=== PATIENT | male | born 1965 | race African-American/Black ===

== ENCOUNTER 2016-08-20 14:52 | Emergency (ER) | payer SELFPAY ==
[~2016-08-20] VITALS: Ht 172.7 cm; Wt 81.6 kg
[2016-08-20] MEDS ORDERED: Thiamine 100mg tab ORAL ONE (15:00)
--- NOTE | 2016-08-20 15:05 | Emergency Room Report ---
History of Present Illness General Chief Complaint: Generalized Weakness Source: Patient (Nellie Grider) Present Illness HPI 51-year-old male presents emergency department brought by ambulance for altered mental status found an apartment 2 days patient is unable to answer questions currently Ananda Beasley. (Nellie Grider) Allergies: Coded Allergies: UNABLE TO ASSESS (Unverified , 08/20/16) Patient History Past Medical History: see triage record Past Surgical History: none Pertinent Family History: none Immunizations: UTD Reviewed Nursing Documentation: PMH: Agreed, PSxH: Agreed (Nellie Grider) Nursing Documentation-PMH Past Medical History: No Stated History (Nellie Grider) Review of Systems All Other Systems: limited - AMS (Nellie Grider) Physical Exam Vital Signs Date Time Temp Pulse Resp B/P Pulse Ox O2 Delivery O2 Flow Rate FiO2 08/20/16 14:47 95 16 116/65 98 Room Air Sp02 EP Interpretation: normal General Appearance: lethargic, thin Head: normocephalic, atraumatic Eyes: bilateral eye PERRL ENT: no angioedema, TMs + canals normal, moist mucus membranes Neck: no bony tend Respiratory: lungs clear, normal breath sounds, no rhonchi, no wheezing Cardiovascular #1: normal peripheral pulses, regular rate, rhythm, no edema, normal capillary refill Cardiovascular #2: 2+ radial (R), 2+ radial (L), 2+ dorsalis pedis (R), 2+ dorsalis pedis (L) Gastrointestinal: non tender, soft, non-distended Rectal: heme negative stool Genitourinary: deferred Neurologic: motor strength/tone normal, DTRs symmetric, sensory intact, no Babinski, other - no facial droop, asymetrical eyebrow raise, neuro exam is limited with no pt. cooperation Skin: normal color, no rash, warm/dry (Nellie Grider) Medical Decision Making PA Attestation Dr. Cho is my supervising Physician whom patient management has been discussed with. (Nellie Grider) Diagnostic Impression: Primary Impression: CVA (cerebrovascular accident) Qualified Codes: I63.312 - Cerebral infarction due to thrombosis of left middle cerebral artery Additional Impressions: Altered mental status Qualified Codes: R41.82 - Altered mental status, unspecified Anemia Qualified Codes: D64.9 - Anemia, unspecified ER Course Pt. presents to the ED c/o AMS Ddx considered but are not limited to intoxication, Sepsis, AL, CVA Vital signs: are WNL, pt. is afebrile H&PE are most consistent with afebrile AMS with mild asymetry of the eyebrows and questionable positive babinski sign of the right foot other g[place]am Neuroexam is limited - Per Dr. Cho NIH Stroke Scale : 20 ORDERS: -CBC 3.2 RBC, 6 HB, 20.8 hct. -CMP: mildly elevated NA, otherwise unremarkable -Lactic Acid: unremarkable -Serum ETOH: less than 10 Serum Salicylates and Acetominophen: WNL -Troponin: WNL - Ck-MB: unremarkable -Type and Screen: O POSITIVE -EK BPM NSR with non-specific T wave abnormalities interpreted in ED by Dr. Cho - CT Head No Contrast: multiple acute and subacute vascular infarcts in the left cerebral hemisphere, cannot exclude carotid occlusion or embolic event per official radiology report. ED INTERVENTIONS: -1 Liter NS Bolus DISPOSITION: at this time pt. will be Transferred ALS to [facility] for higher level of care. Dr. Cho is facilitating transfer after doctor to doctor consult. Labs Test 08/20/16 15:00 White Blood Count 9.2 K/UL (4.8-10.8) Red Blood Count 3.23 M/UL (4.70-6.10) Hemoglobin 6.0 G/DL (14.2-18.0) Hematocrit 20.8 % (42.0-52.0) Mean Corpuscular Volume 65 FL (80-99) Mean Corpuscular Hemoglobin 18.5 PG (27.0-31.0) Mean Corpuscular Hemoglobin Concent 28.6 G/DL (32.0-36.0) Red Cell Distribution Width 19.2 % (11.6-14.8) Platelet Count 762 K/UL (150-450) Mean Platelet Volume 6.3 FL (6.5-10.1) Neutrophils (%) (Auto) % (45.0-75.0) Lymphocytes (%) (Auto) % (20.0-45.0) Monocytes (%) (Auto) % (1.0-10.0) Eosinophils (%) (Auto) % (0.0-3.0) Basophils (%) (Auto) % (0.0-2.0) Sodium Level 146 mEQ/L (135-145) Potassium Level 3.8 mEQ/L (3.4-4.9) Chloride Level 106 mEQ/L (98-107) Carbon Dioxide Level 27 mEQ/L (20-30) Anion Gap 13 (5-15) Blood Urea Nitrogen 23 mg/dL (7-23) Creatinine 1.0 mg/dL (0.7-1.2) Estimat Glomerular Filtration Rate > 60 mL/min (>60) Glucose Level 106 mg/dL (74-106) Lactic Acid Level 1.00 mmol/L (0.66-2.22) Calcium Level 9.3 mg/dL (8.6-10.2) Total Bilirubin 0.4 mg/dL (0.0-1.2) Aspartate Amino Transf (AST/SGOT) 19 U/L (5-40) Alanine Aminotransferase (ALT/SGPT) 14 U/L (3-41) Alkaline Phosphatase 57 U/L (40-129) Total Creatine Kinase 142 U/L (38-174) Creatine Kinase MB 4.1 ng/mL (< 6.7) Creatine Kinase MB Relative Index 2.8 Troponin I < 0.30 ng/mL (<=0.30) Total Protein 6.9 g/dL (6.6-8.7) Albumin 4.0 g/dL (3.5-5.2) Globulin 2.9 g/dL Albumin/Globulin Ratio 1.3 (1.0-2.7) Salicylates Level < 1 mg/dL (10-30) Acetaminophen Level < 10 ug/mL (10-30) Serum Alcohol < 10 mg/dL (Nellie Grider P.A.) ER Course I assessed this patient. R weakness c/w CT findings of multiple infarcts. NIH stroke scale at 17:05 is 20. Airway is secure (+ gag). I presented the patient to Dr. Garcia at [facility]. She accepted the patient. Also discussed low H/H. No evidence of GI bleed. VS stable. Transfer to [facility]. (José Miguel Cho M.D.) Last Vital Signs Date Time Temp Pulse Resp B/P Pulse Ox O2 Delivery O2 Flow Rate FiO2 08/20/16 14:47 95 16 116/65 98 Room Air (Nellie Grider) Status: unchanged (José Miguel Cho M.D.) Disposition: XFER SHT-TRM HOSP - stable for transfer to higher level of care Condition: Critical - but stable for transfer to higher level of care Referrals: NOT CHOSEN IPA/,REFERRING (PCP) Nellie Grider Aug 20, 2016 15:05 José Miguel Cho M.D. Aug 20, 2016 18:04
[2016-08-20 15:42] LABS: TROPONIN I < 0.30 ng/mL (<=0.30)
[2016-08-20 15:45] LABS: ACETAMINOPHEN < 10 ug/mL (10-30); ALANINE AMINOTRANSFERASE 14 U/L (3-41); ALBUMIN/GLOBULIN RATIO 1.3 (1.0-2.7); ALCOHOL < 10 mg/dL; ANION GAP 13 (5-15); ASPARTATE AMINO TRANSFERASE 19 U/L (5-40); CALCIUM 9.3 mg/dL (8.6-10.2); CARBON DIOXIDE 27 mEQ/L (20-30); CHLORIDE 106 mEQ/L (98-107); GLOMERULAR FILTRATION RATE > 60 mL/min (>60); HEMOLYSIS 0; POTASSIUM 3.8 mEQ/L (3.4-4.9); SODIUM 146 mEQ/L (135-145); TOTAL PROTEIN 6.9 g/dL (6.6-8.7)
[2016-08-20 15:51] LABS: MEAN CORPUSCULAR HEMOGLOBIN 18.5 PG (27.0-31.0); MEAN CORPUSCULAR HGB CONC 28.6 G/DL (32.0-36.0); MEAN CORPUSCULAR VOLUME 65 FL (80-99); MEAN PLATELET VOLUME 6.3 FL (6.5-10.1); PLATELET COUNT 762 K/UL (150-450); RED BLOOD COUNT 3.23 M/UL (4.70-6.10); RED CELL DISTRIBUTION WIDTH 19.2 % (11.6-14.8); WHITE BLOOD COUNT 9.2 K/UL (4.8-10.8)
[2016-08-20] MEDS ORDERED: UNOBMED (16:12)
[2016-08-20 16:33] LABS: CKMB 4.1 ng/mL (< 6.7)
--- NOTE | 2016-08-20 16:51 | Diagnostic Imaging Report ---
Indications: Altered mental Technique: Continuous helical CT imaging of the brain was performed with automatic exposure control on a Siemens sensation [address] scanner. Axial and coronal images were reconstructed at 5 mm slice thickness and interval. CTDI volume(s): 70 mGy Total DLP: mGy-cm Findings: Comparison: None. Wedge-shaped, peripherally based foci of abnormal low attenuation are present in the right frontal and parietal lobes. Both gardiner and white matter. Although. 1 cm rounded focus of similar low attenuation is present in the head of the left caudate nucleus. Regional sulci are effaced. No evidence of mass or hemorrhage, other attenuation abnormality, midline shift, hydrocephalus or increased intracranial pressure. Bone window images are unremarkable. Visualized paranasal sinuses and mastoid air cells are clear. IMPRESSION: Findings most compatible with multiple acute to subacute infarcts in the left cerebral hemisphere involving multiple vascular territories . Central arterial occlusion and/or embolic event must be considered. No associated hemorrhage or midline shift. Critical results discussed with Nellie Grider, ER physician diploma dental assistant, by telephone at time of this dictation The CT scanner at [facility] is accredited by the [employer] and the scans are performed using protocols designed to limit radiation exposure to as low as reasonably achievable to attain images of sufficient resolution adequate for diagnostic evaluation.
[2016-08-20 17:01] LABS: LYMPHOCYTES % (MANUAL) 7 % (20-45); NEUTROPHILS % (MANUAL) 83 % (45-75); NUCLEATED RED BLOOD CELLS 2 /100 WBC; TOTAL CELLS COUNTED 100
[2016-08-20 17:03] LABS: ANISOCYTOSIS 3+; HYPOCHROMASIA 2+; OVALOCYTES 1+; POLYCHROMASIA 2+
[2016-08-20 17:04] LABS: MICROCYTES 3+; PLATELET MORPHOLOGY NORMAL
[2016-08-20 17:05] LABS: BAND NEUTROPHILS % (MANUAL) 0 % (0-8); BASOPHILS % (MANUAL) 0 % (0-2); EOSINOPHILS % (MANUAL) 0 % (0-3); PLATELET ESTIMATE INCREASED
[2016-08-20 17:10] VITALS: BP 132/81
[2016-08-20 18:00] VITALS: BP 142/75
[2016-08-20 18:57] VITALS: BP 142/75
--- NOTE | 2016-08-21 11:01 | Diagnostic Imaging Report ---
Indication: Chest pain Technique: Single AP view of the chest. Findings: Comparison: None. Cardiac silhouette upper limits of normal in size. Suggestion of contour deformity proximal aspect right humerus, incompletely imaged. Remaining bones and extra pulmonary soft tissues, remainder of the cardiomediastinal silhouette, pulmonary vasculature and parenchyma, and pleural surfaces are unremarkable. IMPRESSION: No evidence of acute cardiopulmonary disease Borderline cardiomegaly Suggestion of right humeral deformity, incompletely imaged, nonspecific.
[2016-08-23 10:52] LABS: OTHERS PATHOLOGIST COMMENT
--- NOTE | 2016-08-24 20:26 | Cardiology Report ---
APPROVED REPORT EKG Measurement Heart [id number] Normal sinus rhythm Possible Left atrial enlargement Nonspecific T wave abnormality Abnormal ECG
== END 2016-08-20 18:30 | disposition short-term general hospital (02) ==
LOC: EDBD 14:52 → EMR 15:02
DX: I63.9 Cerebral infarction, unspecified (principal); R41.82 Altered mental status, unspecified; D64.9 Anemia, unspecified; R07.9 Chest pain, unspecified
CPT/HCPCS: 36415; 70450; 71010; 80053; 82550; 82553; 83605; 84484; 85007; 85025; 86850; 86900; 86901; 87040; 93005; 96374; 99285; G0480; 80329